=== PATIENT | male | born 2000 | race Two or more races ===

== ENCOUNTER 2023-10-19 16:40 | Emergency (ER) | payer MEDICAID, OTHER ==
[~2023-10-19] VITALS: Ht 175.3 cm; Wt 73.0 kg
[2023-10-19 17:08] VITALS: BP 130/83; PULSE 94; RESP 18; O2SAT 95
== END 2023-10-20 14:14 | disposition home or self-care (01) ==
LOC: ER 16:40 → EDBD 16:40 → ER 10-20 14:13
DX: F41.9 Anxiety disorder, unspecified (principal); Z13.9 Encounter for screening, unspecified